=== PATIENT | female | born 2000 | race African-American/Black ===

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

== ENCOUNTER 2021-12-10 09:49 | Emergency (ER) | payer SELFPAY ==
[2021-12-10 10:29] VITALS: BP 108/74; PULSE 87; RESP 18; TEMP 97.8; BMI 23.8
[2021-12-10] MEDS ORDERED: ACETAMINOPHEN 500 MG TABLET (FP) PO ONE (11:04)
[2021-12-10] MEDS ORDERED: IBUPROFEN 600 MG TABLET (FP) PO ONE ×2 (11:04→11:09)
[2021-12-10] MEDS ORDERED: ACETAMINOPHEN 325 MG TABLET (FP) ONE (11:09)
== END 2021-12-10 14:45 | disposition home or self-care (01) ==
LOC: JERFT 09:49 → JER 09:49 → JERFT 14:45
DX: U07.1 COVID-19 (principal); M25.572 Pain in left ankle and joints of left foot; M25.561 Pain in right knee
CPT/HCPCS: 0241U-QW; 73560-TC-RT-FY; 73610-TC-LT-FY; 73630-TC-LT; 99284-25

== ENCOUNTER 2022-04-13 11:22 | Emergency (ER) | payer OTHER, BC ==
[2022-04-13 12:26] VITALS: BP 107/59; PULSE 88; RESP 18; TEMP 97.9; BMI 22.9
== END 2022-04-13 13:23 | disposition home or self-care (01) ==
LOC: JERFT 11:22 → JER 11:22 → JERFT 13:23
DX: S89.92XA Unspecified injury of left lower leg, initial encounter (principal); X50.0XXA Overexertion from strenuous movement or load, initial encounter; Y93.67 Activity, basketball
CPT/HCPCS: 73562-TC-LT-FY; 99283-25